=== PATIENT | male | born 1950 | race African-American/Black ===

== ENCOUNTER → 2019-02-13 | Outpatient (CLI) | payer MEDICARE ==
--- NOTE | 2019-02-13 17:48 | KCIC ---
MRI of the cervical spine without contrast 02/13/2019 CLINICAL HISTORY: Chronic neck pain. TECHNIQUE: Unenhanced T1-weighted, T2-weighted and inversion recovery sagittal and gradient echo and T2-weighted axial images of the cervical spine were obtained. FINDINGS: Very mild lateral curvature of the cervical spine is seen convex to the right. There is straightening of the normal cervical lordosis. Degenerative signal changes are seen involving all of the disks of the cervical spine. Degenerative signal changes are seen within the marrow surrounding these discs. Focal atrophy is seen involving the cervical spinal cord at the C3-4 level. Areas of increased signal intensity are seen within the lateral aspects of the cervical spinal cord at this level on the T2-weighted and inversion recovery images consistent with myelomalacia. These measure 5 mm in size. No additional area of abnormal signal intensity is seen involving the cervical spinal cord. At the C2-3 disc space there is a mild generalized disc bulge. Degenerative changes are seen involving the uncovertebral and facet joints bilaterally. These findings do not result in significant central spinal canal or neural foraminal stenosis. At the C3-4 disc space there is a moderate generalized disc bulge. Degenerative changes are seen involving the uncovertebral and facet joints bilaterally. These findings when combined efface the anterior and posterior CSF resulting in mild central spinal canal stenosis without evidence of cord impingement. Moderate bilateral neural foraminal stenosis is seen. At the C4-5 disc space there is a mild generalized disc bulge. Degenerative changes are seen involving the uncovertebral and facet joints, left greater than right. These findings do not result in significant central spinal canal stenosis. Mild to moderate left greater than right neural foraminal stenosis is seen. At the C5-6 disc space is a mild generalized disc bulge. Degenerative changes are seen involving the uncovertebral and facet joints, left greater than right. These findings when combined do not result in significant central spinal canal stenosis. Mild to moderate left greater than right neural foraminal stenosis is seen. At the C6-7 disc space there is a mild to moderate generalized disc bulge. This is eccentric to the left. Superimposed on this disc bulge is a left paracentral focal disc protrusion. This measures 3.5 mm in AP diameter. Degenerative changes are seen involving the uncovertebral and facet joints, left greater than right. These findings when combined result in mild left greater than right central spinal canal stenosis without evidence of cord impingement. Mild left neural foraminal stenosis is seen. The right neural foramen is patent. At the C7-T1 disc space there is a minimal generalized disc bulge. Degenerative changes are seen involving the facet joints bilaterally. These findings do not result in significant central spinal canal or neural foraminal stenosis. IMPRESSION: Degenerative changes are seen throughout the cervical spine. These findings result in mild central spinal canal stenosis at C3-4 and mild left greater than right central spinal canal stenosis at C6-7 without evidence of cord impingement. Multilevel neural foraminal stenosis of varying severity is seen as discussed above. A focal area of atrophy with areas of myelomalacia is seen involving the cervical spinal cord at C3-4. Electronically signed by: Alon Monson MD (02/13/2019 5:45 PM) [id number]
== END | disposition home or self-care (01) ==
LOC: KCIC MRI 13:37
DX: M47.813 Spondylosis without myelopathy or radiculopathy, cervicothoracic region (principal); M48.03 Spinal stenosis, cervicothoracic region; M50.21 Other cervical disc displacement, high cervical region; M50.223 Other cervical disc displacement at C6-C7 level; G95.89 Other specified diseases of spinal cord; G89.29 Other chronic pain
CPT/HCPCS: 72141